=== PATIENT | male | born 2000 | race Caucasian/White ===

== ENCOUNTER → 2021-12-01 12:10 | Outpatient (CLI) | payer OTHER, SELFPAY ==
--- NOTE | ~2021-12-01 | XR_ITS ---
EXAMINATION: XR chest 2V 12/01/2021 12:24 INDICATION: Dyspnea with cough PROCEDURE: 2 view chest COMPARISON: No prior studies for comparison. FINDINGS: The lungs are clear. The cardiomediastinal silhouette is within normal limits. There are no pleural effusions. There is no pneumothorax suspected. IMPRESSION: 1: NO ACUTE CARDIOPULMONARY DISEASE. Reviewed, dictated and finalized at location A.
== END ==
PROVIDERS: PCP Family Medicine; Visit Provider Family Medicine
DX: R06.00 Dyspnea, unspecified (principal)
CPT/HCPCS: 71046

== ENCOUNTER 2022-01-03 07:35 | Outpatient (CLI) | payer OTHER, SELFPAY ==
--- NOTE | 2022-01-03 07:53 | ECHO_ITS ---
Patient Info Name: Shalom Mendoza Age: 21 years : 2000 Gender: Male Ht: 76 in Wt: 185 lbs BSA: 2.12 m2 HR: 42 bpm BP: 126 / 66 mmHg Technical Quality: Good Exam Date: 01/03/2022 8:14 AM Exam Location: [facility] Patient Status: Outpatient Admit Date: 01/03/2022 Staff Ordering Physician: Agusto Cedillo MD Senior [employer] Officer: Jaspal Araiza, LIEN, RT Attending Provider: Agusto Cedillo MD Referring Physician: Nguyen COLIN; Exam Type: CA echo doppler color flow Study Info Indications R06.02 - Shortness of breath Complete two-dimensional, color flow and Doppler transthoracic echocardiogram is performed. Strain analysis performed. Summary 1. Complete two-dimensional, color flow and Doppler transthoracic echocardiogram is performed. 2. Left ventricular chamber dimension is normal. 3. Left ventricular systolic function is normal, estimated at 60-65%. 4. The left ventricular diastolic function is normal. 5. E/e' 5 is not elevated. 6. Global longitudinal strain is normal at -18.5%. 7. There is mild mitral valve regurgitation. 8. There is trace tricuspid valve regurgitation. 9. Dilated inferior vena cava with >50% collapse upon inspiration consistent with elevated right atrial pressure, 10 mmHg. Left Ventricle E/e' 5 is not elevated. Global longitudinal strain is normal at -18.5%. Left ventricular chamber dimension is normal. Left ventricular systolic function is normal, estimated at 60-65%. The left ventricular diastolic function is normal. Right Ventricle Right ventricular systolic function is normal and with normal TAPSE 2.7 cm. Right ventricular chamber dimension is normal. Left Atria Left atrial chamber dimension is normal. Right Atria Right atrial chamber dimension is normal. Aortic Valve The aortic valve is trileaflet. There is no aortic valve stenosis. There is no aortic valve regurgitation. Pulmonic Valve There is no pulmonic regurgitation. Mitral Valve There is no mitral valve stenosis. There is mild mitral valve regurgitation. Tricuspid Valve There is trace tricuspid valve regurgitation. RVSP is not calculated due to an inadequate TR jet. Pericardium/Pleural There is no pericardial effusion. Inferior Vena Cava Dilated inferior vena cava with >50% collapse upon inspiration consistent with elevated right atrial pressure, 10 mmHg. Aorta The aortic root size at the sinus of Valsalva is normal. Left Ventricular Outflow Tract Name Value Normal LVOT 2D LVOT Diameter 2.0 cm LVOT Doppler LVOT Peak Gradient 5 mmHg LVOT Mean Gradient 3 mmHg LVOT VTI 25 cm LVOT VTI/AV VTI Ratio 1.0 LVOT Stroke Volume 82 ml LVOT CO 3.4 l/min LVOT CI 1.6 l/min/m2 Mitral Valve Name Value Normal
--- NOTE | 2022-01-03 15:23 | P.PCNPFT_ITS ---
PFT Procedure Performed PFT Procedure Performed Spirometry with Pre/Post Bronchodilator Plethysmography (Lung Vol) Diffusing Cap (DLCO) Flow Vol Loop PFT Interpretation This is a pulmonary function test with pre and post-bronchodilator spirometry, plethysmography and diffusing capacity. The test was performed and results interpreted in accordance with the 2019 and 2005 ATS/ERS Task Force guidelines respectively using the Global Lung Function Initiative-2012 reference equations. Patient demonstrated good effort and cooperation. Reproducibility criteria were met. The quality of the pre bronchodilator spirometry maneuver was Grade A and post bronchodilator spirometry maneuver was Grade A. Findings: Spirometry: There is decreased maximal expiratory airflow at all lung volumes. The contour the inspiratory flow tracing is normal. The pre bronchodilator FVC is 6.06 L, 91% predicted. The pre bronchodilator FEV1 is 4.37 L, 78% predicted. The pre bronchodilator FEV1: FVC ratio is 72%. The post bronchodilator FVC is 6.41 L, representing a 6% increase. The post bronchodilator FEV1 is 4.95 L, re presenting a 13% increase. The post bronchodilator FEV1: FVC ratio 77%. Plethysmography: The total lung capacity is 8.36 L, 104% predicted. The functional residual capacity is 5.30 L, 133% predicted. The residual volume is 2.21 L, 127% predicted. Diffusing capacity: The diffusion capacity unadjusted for hemoglobin and carboxyhemoglobin is 43.0, 107% predicted. The diffusing capacity adjusted for alveolar volume is 5.03, 98% predicted. Impression: There is a mild obstructive abnormality with significant improvement after inhaling a single dose of albuterol. The lung volumes are normal. The diffusing capacity is normal. There are no prior studies for comparison
== END 2022-01-03 07:36 | disposition home or self-care (01) ==
LOC: ANHCARD 07:38
PROVIDERS: PCP Family Medicine; Visit Provider Family Medicine
DX: J45.20 Mild intermittent asthma, uncomplicated (principal); R06.00 Dyspnea, unspecified; R94.2 Abnormal results of pulmonary function studies
CPT/HCPCS: 93306; 94060; 94726; 94729

== ENCOUNTER → 2024-01-22 11:49 | Outpatient (CLI) | payer OTHER, SELFPAY ==
--- NOTE | ~2024-01-22 | XR_ITS ---
XR tibia fibula LT 2V Ordering provider: Agusto Cedillo MD History: . M79.604 - Pain in right leg . Comparison: None. FINDINGS: BONES: No acute fracture or dislocation. JOINT SPACES: Normal. SOFT TISSUES: Normal. IMPRESSION: No acute osseous abnormality left leg. Reviewed, dictated and finalized at location A.
--- NOTE | ~2024-01-22 | XR_ITS ---
XR tibia fibula RT 2V Ordering provider: Agusto Cedillo MD History: . M79.604 - Pain in right leg . Comparison: None. FINDINGS: BONES: No acute fracture or dislocation. JOINT SPACES: Normal. SOFT TISSUES: Normal. IMPRESSION: No acute osseous abnormality right leg. Reviewed, dictated and finalized at location A.
== END ==
LOC: EXPTRAD 11:51
PROVIDERS: PCP Family Medicine; Visit Provider Family Medicine
DX: M79.604 Pain in right leg (principal); M79.605 Pain in left leg
CPT/HCPCS: 73590